=== PATIENT | female | born 1950 | race Caucasian/White ===

== ENCOUNTER 2017-05-14 19:40 | Emergency (ER) | payer MEDICARE, BC ==
[2017-05-14 20:41] VITALS: BP 140/112
[2017-05-14] MEDS ORDERED: Bacitracin Oint 1 GM U/D Packet TOP ONE (20:50)
[2017-05-14] MEDS ORDERED: Diphtheria,Pertussis(Acell),Tetanus Vaccine 0.5 ML SDV IM ONE (21:24)
--- NOTE | 2017-05-14 21:46 | EDM.PDOC ---
ED HPI GENERAL MEDICAL PROBLEM - General Chief Complaint: Skin Complaint Stated Complaint: FISH HOOK - NOSE Time Seen by Provider: 05/14/17 20:06 Source of Information: Reports: Patient History Limitations: Reports: No Limitations - History of Present Illness INITIAL COMMENTS - FREE TEXT/NARRATIVE: fish hook:This is a 66 year old female present to the ER with and Son. She report they were out fishing, her Grandson placed a minnow on a hook, went to cast the line and hooked his Grandmother in the nose. Onset: Today, Sudden Duration: Hour(s): Location: Reports: Face Quality: Reports: Ache Severity: Mild Improves with: Reports: Immobilization Worsens with: Reports: Movement Associated Symptoms: Reports: No Other Symptoms - Related Data Allergies Allergy/AdvReac Type Severity Reaction Status Date / Time codeine Allergy Vomiting Verified 05/14/17 20:45 Past Medical History HEENT History: Reports: Impaired Vision Cardiovascular History: Reports: Hypertension Respiratory History: Reports: Asthma FAMILY SERVICES COORDINATOR History: Reports: - Infectious Disease History Infectious Disease History: Reports: Chicken Pox, Measles, Mumps - Past Surgical History Musculoskeletal Surgical History: Reports: Knee Replacement Social & Family History - Tobacco Use Smoking Status *Q: Never Smoker - Caffeine Use Caffeine Use: Reports: Coffee - Recreational Drug Use Recreational Drug Use: No ED ROS GENERAL - Review of Systems Review Of Systems: See Below Constitutional: Reports: No Symptoms HEENT: Reports: Nose Pain (secondary to fish hook) Skin: Denies: Wound (f.b. in nose) ED EXAM, SKIN/RASH Exam: See Below Exam Limited By: No Limitations General Appearance: Alert, WD/WN, Mild Distress Eye Exam: Bilateral Eye: Normal Inspection Ears: Normal External Exam Nose: Other (fish hook noted to the left lateral nasal cartilage. fish hook imbedded into cartilage, does not appear to enter internal nasal structures.) Throat/Mouth: Normal Inspection Head: Facial Tenderness (secondary to fishhook) Neck: Normal Inspection Respiratory/Chest: No Respiratory Distress ED SKIN PROCEDURES - Foreign Body Removal Consent Obtained:: Patient Performing Doctor:: Britney Cabrales Foreign Body Other Location Comment:: fish hook to left lateral nasal cartilage Anesthesia Type: Local Findings:: cleansed area with antiseptic soap inject Lidocaine 1% to puncture wound pushed hook thru, then clipped alea then removed fish hook without difficulty apply bacitracin ointment Tdap 0.5ml given skin care discussed Complications:: No Course - Vital Signs Last Recorded V/S: Last Vital Signs Temp 36.3 C 05/14/17 20:41 Pulse 91 05/14/17 20:41 Resp 18 05/14/17 20:41 BP 140/112 H 05/14/17 20:41 Pulse Ox 97 05/14/17 20:41 - Orders/Labs/Meds Orders: Active Orders 24 hr Category Date Time Status Vaccines to be Administered [RC] PER UNIT ROUTINE Care 05/14/17 21:25 Active Meds: Medications Discontinued Medications Generic Name Dose Route Start Last Admin Trade Name Ashish PRN Reason Stop Dose Admin Bacitracin 1 dose 05/14/17 20:50 05/14/17 21:47 Bacitracin Oint 1 Gm TOP 05/14/17 20:51 1 dose ONETIME ONE Administration Diphtheria/Tetanus/Acell Pertussis 0.5 ml 05/14/17 21:24 05/14/17 21:47 Adacel IM 05/14/17 21:25 0.5 ml .ONCE ONE Administration Lidocaine HCl 5 ml 05/14/17 20:49 05/14/17 21:47 Xylocaine-Mpf 1% INJECT 05/14/17 20:50 5 ml ONETIME ONE Administration Departure - Departure Time of Disposition: 22:06 Disposition: Home, Self-Care 01 Condition: Good Clinical Impression: Fishing hook foreign body Qualifiers: Encounter type: initial encounter Qualified Code(s): W45.8XXA - Other foreign body or object entering through skin, initial encounter - Discharge Information Instructions: Puncture Wound, [id number] Referrals: PCP,None [Primary Care Provider] - Forms: ED Department Discharge Care Plan Goals: fish hook nose -Tdap 0.5ml given in ER, next due 2026 -Keflex 500mg one tablet in morning and evening for 7 days -Hydrocodone 5-325mg take half to one tablet every 4 to 6 hours as needed for pain -keep puncture wound clean and dry Return to Clinic, Urgent Care or ER for any increased pain, redness, drainage or not improved. - Problem List & Annotations (1) Fishing hook foreign body SNOMED Code(s): 957748287 Code(s): W45.8XXA - OTH FOREIGN BODY OR OBJECT ENTERING THROUGH SKIN, INIT Status: Acute Priority: High Qualifiers: Encounter type: initial encounter Qualified Code(s): W45.8XXA - Other foreign body or object entering through skin, initial encounter - Problem List Review Problem List Initiated/Reviewed/Updated: Yes - My Orders Last 24 Hours: My Active Orders 05/14/17 21:25 Vaccines to be Administered [RC] PER UNIT ROUTINE - Assessment/Plan Last 24 Hours: My Active Orders 05/14/17 21:25 Vaccines to be Administered [RC] PER UNIT ROUTINE Plan: fish hook nose -Tdap 0.5ml given in ER, next due 2026 -Keflex 500mg one tablet in morning and evening for 7 days -Hydrocodone 5-325mg take half to one tablet every 4 to 6 hours as needed for pain -keep puncture wound clean and dry Return to Clinic, Urgent Care or ER for any increased pain, redness, drainage or not improved.
== END 2017-05-14 22:06 | disposition home or self-care (01) ==
LOC: JP.ED 19:40
DX: S00.35XA Superficial foreign body of nose, initial encounter (principal); J45.909 Unspecified asthma, uncomplicated; I10 Essential (primary) hypertension; Z96.659 Presence of unspecified artificial knee joint; Z88.5 Allergy status to narcotic agent; Z23 Encounter for immunization; W45.8XXA Other foreign body or object entering through skin, initial encounter
CPT/HCPCS: 90471; 90715; 99283; 99283-25